=== PATIENT | female | born 1945 | race Caucasian/White ===

== ENCOUNTER 2021-03-17 15:11 | Emergency (ER) | payer MEDICARE, BC ==
[~2021-03-17] VITALS: Ht 162.6 cm; Wt 79.5 kg
[2021-03-17 15:38] LABS: BASOPHILS # (AUTO) 0.1 X10'3 (0-0.2); BASOPHILS % (AUTO) 1.4 % (0-1); EOSINOPHILS # (AUTO) 1.4 X10'3 (0-0.9); EOSINOPHILS % (AUTO) 16.3 % (0-6); HEMATOCRIT 38.4 % (35.0-45.0); HEMOGLOBIN 13.1 g/dl (12.0-16.0); LYMPHOCYTES # (AUTO) 1.6 X10'3 (1.1-4.8); LYMPHOCYTES % (AUTO) 18.4 % (21-51); MEAN CORPUSCULAR HGB CONC 34.1 g/dL (33.0-36.5); MEAN CORPUSCULAR VOLUME 90.8 FL (78-98); MEAN PLATELET VOLUME 6.8 FL (7.4-10.4); MONOCYTES # (AUTO) 0.9 X10'3 (0-0.9); MONOCYTES % (AUTO) 10.4 % (2-12); NEUTROPHILS # (AUTO) 4.6 X10'3 (1.8-7.7); NEUTROPHILS % (AUTO) 53.5 % (42-75); PLATELET COUNT 415 X10'3 (140-440); RED BLOOD COUNT 4.23 X10'6 (4.20-5.60); RED CELL DISTRIBUTION WIDTH 14.4 % (11.5-14.5); WHITE BLOOD COUNT 8.5 X10'3 (4.5-11.0)
[2021-03-17] MEDS ORDERED: predniSONE 20 mg tablet PO ONE (15:40)
[2021-03-17] MEDS ORDERED: ipratropium/albuterol 3ml nebule NEB ONE (15:40)
[2021-03-17 15:52] LABS: ALANINE AMINOTRANSFERASE 26 U/L (12-78); ALBUMIN 3.3 G/DL (3.4-5.0); ALBUMIN/GLOBULIN RATIO 0.9 (1.1-1.5); ALKALINE PHOSPHATASE 124 IU/L (46-116); ANION GAP 11 (8-16); ASPARTATE AMINO TRANSFERASE 19 U/L (10-37); BILIRUBIN,TOTAL 0.3 MG/DL (0.1-1.0); BLOOD UREA NITROGEN 11 MG/DL (7-18); BUN/CREATININE RATIO 12.4 (6.6-38.0); CALCIUM 8.2 MG/DL (8.5-10.1); CHLORIDE 100 MMOL/L (99-107); CREATININE 0.89 MG/DL (0.40-0.90); GLUCOSE 100 MG/DL (70-104); POTASSIUM 3.7 MMOL/L (3.5-5.1); SODIUM 136 MMOL/L (135-145); TOTAL CARBON DIOXIDE 24.8 MMOL/L (24-32); TOTAL PROTEIN 7.1 G/DL (6.4-8.2); eGFR 62 ML/MIN
[2021-03-17 16:54] LABS: D-DIMER 0.74 MG/L FEU (0-0.50)
--- NOTE | 2021-03-17 17:00 | NUR ---
PT AMB WITH STEADY GAIT TO RESTROOM, NO DIZZINESS/LIGHTHEADEDNESS
[2021-03-17] MEDS ORDERED: iohexol 350MG/ML 100ml bottle IV ONE (17:40)
--- NOTE | 2021-03-17 17:51 | NUR ---
PT TO CT
--- NOTE | 2021-03-17 18:25 | NUR ---
PT BROUGHT TO CT W/ NO IV. A 20G WAS STARTED INTHE RT FOREARM, FLUSHED WELL. CTA CHEST SCAN WAS COMPLETED. IV INFILTRATED DURING THE SALINE INJECTION PORTION AND WAS QUITE SWOLLEN. IV WAS REMOVED AND COLD AND THEN WARM COMPRESSES APPLIED. ARM WAS WRAPPED WITH GAUZE COVERING IV SITE BUT ALSO USED MORE COMPRESSION FOR INFILTRATION AREA. PT TOLD TO WATCH AND IF TOO TIGHT CAN REMOVE IT.
[2021-03-17 18:50] VITALS: BP 137/85
[2021-03-17] MEDS ORDERED: ALBU17AE26 INH (19:11)
[2021-03-17] MEDS ORDERED: ALB0.5UD IH (19:11)
[2021-03-17] MEDS ORDERED: POTA1POW PO (19:11)
[2021-03-17] MEDS ORDERED: [UNRECOGNIZED DRUG - OTHER] PO (19:11)
[2021-03-17] MEDS ORDERED: CAL-MAG PO (19:11)
[2021-03-17] MEDS ORDERED: ASPI81TA52 PO (19:11)
[2021-03-17] MEDS ORDERED: [UNRECOGNIZED DRUG - OTHER] PO (19:11)
[2021-03-17] MEDS ORDERED: [UNRECOGNIZED DRUG - OTHER] PO (19:11)
[2021-03-17] MEDS ORDERED: apixaban 5mg tablet PO SCH (19:35)
[2021-03-17] MEDS ORDERED: APIX5TAB3 PO (19:36)
== END 2021-03-17 20:13 | disposition home or self-care (01) ==
LOC: ER 15:11
DX: R06.02 Shortness of breath (principal); Z20.822 Contact with and (suspected) exposure to COVID-19; I48.91 Unspecified atrial fibrillation; J44.9 Chronic obstructive pulmonary disease, unspecified; Z79.82 Long term (current) use of aspirin; Z79.899 Other long term (current) drug therapy; Z88.0 Allergy status to penicillin; Z88.1 Allergy status to other antibiotic agents; Z88.8 Allergy status to other drugs, medicaments and biological substances
CPT/HCPCS: 36415; 71045; 71275; 80053; 83880; 84443; 84484; 85025; 85379; 87635; 93005; 94640; 99285; C9803; J7512; Q9967; 94760